=== PATIENT | male | born 1955 | race Caucasian/White ===

== ENCOUNTER 2020-05-10 23:44 | Inpatient (IN) | payer MEDICARE, OTHER, SELFPAY ==
[2020-05-10 23:49] VITALS: BP 163/117; PULSE 123; RESP 20; TEMP 37.2; O2SAT 97; BMI 25.4
[2020-05-11] VITALS (16 sets, daily range): BP systolic 125–167; BP diastolic 56–109; PULSE 72–110; RESP 12–23; TEMP 36.6–36.9; O2SAT 95–100; BMI 25.3; BMI 25.4
--- NOTE | 2020-05-11 00:06 | ED.DCSUM_ITS ---
- ER Visit Summary Date of Service: 05/11/20 Chief Complaint: Alcohol withdrawal History of Present Illness: The patient is a 64 M who presents with alcohol withdrawal requesting detox tonight. Patient states he is having tremors that are generalized. Patient states he is unsteady on his feet and has been falling frequently. Patient states his legs give out from under him. Patient states this has been getting worse over the past couple days. Patient drinks 16 ounce beers all day every day. Patient is unable to quantify but family states it is probably at least 10 beers per day. Patient states his last drink was 3 days ago. Physical Examination: Vital signs are stable except for an elevated blood pressure of 163/117 and a tachycardia of 123. Patient is afebrile. Patient is in no acute distress. Oral mucosa is pink and moist. Neck is supple. Trachea is midline. There is no JVD. Heart was regular and tachycardic. Lungs are clear and equal bilaterally. Abdomen is soft. Bowel sounds are normal. There is no tenderness. There is no rebound or guarding noted. Cranial nerves II through XII are intact. There are tremors noted in the upper and lower extremities bilaterally. Strength is 5/5 bilateral in the upper and lower extremities. There are no sensory deficits. Test Results: CBC is within normal limits. Comprehensive metabolic profile showed a mild hypokalemia of 3.1. Total bilirubin was 1.3. AST was 71 and ALT was 95. Urinalysis does not show any evidence of urinary tract infection. Emergency Department Course and Treatment: Patient was given IV fluids. Patient was given phenobarbital, Librium, and thiamine. Patient was also given a dose of oral potassium here. Patient is feeling better on reevaluation. Case was discussed with the hospitalist. He will admit the patient to the hospital. Patient understood and was agreeable with the plan. All questions were answered. Disposition: Admit to hospital Impression: 1. Alcohol withdrawal This note was generated with [employer] dictation software. It may contain incorrect words, spelling, and punctuation that were not noted in review of the chart prior to signing ED Disposition - Plan for ED Patient: Disposition: Acute Care [facility] Diagnosis: Alcohol withdrawal Referrals: Care Physician,No Primary [Primary Care Provider] -
[2020-05-11 00:13] LABS: Absolute Lymphocyte Count 0.61 X10^3/uL (0.83-4.51); Absolute Neutrophil Count 5.9 X10^3/uL (2.0-7.7); Basophil# 0.02 X10^3/uL; Basophil% 0.3 % (0-1); Hematocrit 45.3 % (40-54); Hemoglobin 15.5 g/dL (13.0-16.5); Lymphocyte # 0.61 X10^3/ul (4.0); Lymphocyte % 8.2 % (19-41); Mean Corp Hgb Conc 34.2 g/dL (32-36); Mean Corpuscular Hgb 32.4 pg (27.0-32.0); Mean Corpuscular Volume 94.6 fL (80-94); Mean Platelet Vol. 10.5 fl (6.2-12.0); Monocyte% 12.1 % (0-10); NRBC Flagged by Analyzer 0 % (0-5); Neutrophil # 5.85 X10^3/uL (2.7-7.7); Neutrophil % 78.7 % (47-70); Platelet Count 153 K/mm3 (150-450); RBC Distribution Width CV 15.4 % (11.6-14.6); RBC Distribution Width SD 53.9 fl (35.1-43.9); Red Blood Count 4.79 M/mm3 (4.6-6.2); White Blood Count 7.4 K/mm3 (4.4-11.0)
[2020-05-11 00:21] LABS: International Normalized Ratio 1.1; Prothrombin Time (Protime)PT. 13.4 SECONDS (11.7-14.9)
[2020-05-11 00:22] LABS: Alcohol, Blood (Medical)-Serum < 3.0 mg/dL; Partial Thromboplast Time 24.6 Seconds (24.1-36.2)
[2020-05-11 00:27] LABS: ALB/GLOB Ratio 1.2 RATIO (0.9-2.4); AST(SGOT) 71 U/L (15-37); Alanine Aminotransfer ALT/SGPT 95 U/L (16-61); Albumin, Serum 4.5 g/dL (3.2-5.0); Alkaline Phosphatase 93 U/L (45-117); Anion Gap 10 (5-15); BUN 10 mg/dL (7-18); BUN/Creat Ratio 8.3 RATIO (10-20); Calcium,Total 10.1 mg/dL (8.5-10.1); Chloride 105 mmol/L (98-107); EST Glomerular Filtration Rate 64 mL/min (>60); Est Glom Filt Rate - Afr Amer 78 mL/min (>60); Estimated Creatinine Clearance 54.64 ml/min; Globulin 3.9 g/dL (2.2-4.2); Glucose 202 mg/dL (74-106); Lipase 221 U/L (73-393); Potassium 3.1 mmol/L (3.5-5.1); Protein, Total 8.4 g/dL (6.4-8.2); Sodium Level 139 mmol/L (136-145)
[2020-05-11] MEDS: chlordiazePOXIDE 25 MG Capsule PO (00:30)
[2020-05-11] MEDS: Phenobarbital 32.4 MG Tablet PO ×6 (00:30→21:46)
[2020-05-11] MEDS: 0.9% Normal Saline 1,000 ML 1000 ML IV (00:30)
[2020-05-11 01:55] LABS: Bacteria 0 SEEN /hpf (None Seen); Mucous, Urine 0 SEEN /hpf (<or=2+); Squamous Epithelial Cells - UA 0 SEEN /hpf (0-5)
[2020-05-11 01:57] LABS: Color, Urine Yellow (Yellow); Glucose, Dipstick 50 mg/dl (Normal); Ketone-Dipstick 5 mg/dl (Negative); Leukocyte Esterase-Dipstick Negative /ul (Negative); Nitrite-Dipstick Negative (Negative); Occult Blood-Urine 25 /ul (Negative); Protein-Dipstick 100 mg/dl (Negative); Urine Bilirubin Dipstick Negative (Negative); Urine Clarity Clear (Clear); Urine Urobilinogen Normal (Normal)
[2020-05-11 02:04] LABS: Red Blood Cells-Urine 0-5 SEEN /hpf (0-5); White Blood Cells 0 SEEN /hpf (0-5)
[2020-05-11 02:17] LABS: Amphetamine Urine VISTA NEGATIVE (<1000 ng/mL); Barbiturate Urine VISTA NEGATIVE (< 200 ng/mL); Benzodiazepine Urine VISTA NEGATIVE (< 200 ng/mL); Cocaine Urine VISTA NEGATIVE (< 300 ng/mL); Ecstacy Urine VISTA NEGATIVE (< 500 ng/mL); Methadone Urine VISTA NEGATIVE (< 300 ng/mL); PCP Urine VISTA NEGATIVE (< 25 ng/mL); THC Urine VISTA NEGATIVE (< 50 ng/mL); Vista UDS pH Range 7
--- NOTE | 2020-05-11 03:09 | PCM.HP.STD ---
Problem List (1) Alcohol withdrawal Status: Acute History of Present Illness Date of Admission: 05/11/20 Chief Complaint: Tremors The patient is a 64 year old M with a significant history of alcohol withdrawal who presented to emergency department with generalized body tremors that started on the same day of presentation. Patient reported that he has drunk all his life. He drinks at least 10 bottles of 16 ounces of beer per day. He reported that he is unable to walk and has a steady gait. He walks by holding onto things. He reports that he had to crawl to and from the bathroom. He denies any nausea or vomiting. Last time he drank was 3 days ago. At emergency department because of severe tremors patient was given Librium and phenobarbital; as well as thiamine. Also he had hypokalemia and he received supplements of potassium. He was also given normal saline 1000 mL bolus. Past Medical History Medical History: Medical History (Last Updated 05/11/20 @ 06:[address] Devante Spain MD) Alcoholism F10.20 Allergies No Known Allergies Allergy (Verified 05/10/20 23:53) Home Medications: Ambulatory Orders Medication Instructions Recorded Multivitamin with Minerals tab PO DAILY 05/11/20 [Multiple Vitamin] Surgical History: herniorrhaphy - X2 Smoking Status: Never smoker Alcohol: Heavy - *Family History Maternal History Items: Dementia - Alzheimer type Paternal History Items: Heart Disease Review of Systems Constitutional: Denies: Chills, Fever, Weight Change HEENT: Denies: Head Aches, Sinus Congestion, Sinus Drainage Cardiovascular: Denies: Chest Pain, Palpitations Respiratory: Denies: Cough, Shortness of breath at rest, Sputum production Gastrointestinal: Denies: Abdominal Pain, Nausea, Vomiting Genitourinary: Denies: Dysuria Musculoskeletal: Denies: Joint Pain, Joint Tenderness Skin: Denies: Rash, Wounds Neurological: Reports: Incoordination. Denies: Focal weakness, Numbness, Tingling Psychiatric: Reports: Depression. Denies: Homicidal Ideations, Suicidal Ideations Hematologic/ Lymphatic: Denies: Easy Bruising, Easy Bleeding VTE Information - Inpt Only VTE Present on Admission: No VTE Mechan Device Prophylaxis: None VTE Pharm Prophylaxis ordered?: Yes Patient Problems: Active and Suspected Problems (Last Updated 05/11/20 @ 06:[address] Devante Spain MD) Alcohol withdrawal (Acute) - Physical Exam Vitals/I&O's: Vital Signs Temp Pulse Resp BP Pulse Ox 98.9 F 84 23 H 159/56 H 95 05/10/20 23:49 05/11/20 03:05 05/11/20 03:05 05/11/20 03:05 05/11/20 03:05 Oxygen Delivery Method Room Air Weight: 71.7 kg Body Mass Index (BMI) 25.4 Intake and Output for Last 24 Hours 05/09/20 05/10/20 05/11/20 23:59 23:59 23:59 Intake Total 1051 / 1051 Balance 1051 / 1051 General: Alert, Oriented x3, Cooperative HEENT: Atraumatic, PERRLA, EOMI, Normocephalic Neck: Supple, No JVD, Negative Carotid Bruits Lungs: Clear to auscultation, Normal air movement Cardiovascular: Regular rate, Regular Rhythm, Normal S1, Normal S2, No murmurs Abdomen: Bowel Sounds Present, Soft, Non Tender Extremities: No edema, Capillary Refill Less than 3 Seconds Skin: No rashes, No breakdown Musculoskeletal: No Tenderness to Palpation of Joints or Extremities Neurological: Cranial nerves II-XII grossly intact, - - Generalized body tremors Psych/Mental Status: Anxious Laboratory Results 05/10/20 23:50: WBC 7.4, RBC 4.79, Hgb 15.5, Hct 45.3, MCV 94.6 H, MCH 32.4 H, MCHC 34.2, RDW Std Deviation 53.9 H, RDW Coeff of Verenice 15.4 H, Plt Count 153, MPV 10.5, Immature Gran % (Auto) 0.700, Neut % (Auto) 78.7 H, Lymph % (Auto) 8.2 L, [place] % (Auto) 12.1 H, Eos % (Auto) 0.0, Baso % (Auto) 0.3, Absolute Neuts (auto) 5.9, Absolute Lymphs (auto) 0.61 L, Nucleated RBC % 0 05/10/20 23:50: PT 13.4, INR 1.1, APTT 24.6 05/10/20 23:50: Sodium 139, Potassium 3.1 L, Chloride 105, Carbon Dioxide 24.0, Anion Gap 10, BUN 10, Creatinine 1.20, Estim Creat Clear Calc 54.64, Est GFR (MDRD) Af Amer 78, Est GFR (MDRD) Non-Af 64, BUN/Creatinine Ratio 8.3 L, Glucose 202 H, Calcium 10.1, Total Bilirubin 1.30 H, AST 71 H, ALT 95 H, Alkaline Phosphatase 93, Total Protein 8.4 H, Albumin 4.5, Globulin 3.9, Albumin/Globulin Ratio 1.2, Lipase 221 05/10/20 23:50: Ethyl Alcohol < 3.0 05/11/20 01:46: Urine Color Yellow, Urine Clarity Clear, Urine pH 7.0, Ur Specific [place] 1.010, Urine Protein 100 H, Urine Glucose (UA) 50 H, Urine Ketones 5 H, Urine Occult Blood 25 H, Urine Nitrite Negative, Urine Bilirubin Negative, Urine Urobilinogen Normal, Ur Leukocyte Esterase Negative, Urine RBC 0-5 SEEN, Urine WBC 0 SEEN, Ur Squamous Epith Cells 0 SEEN, Urine Bacteria 0 SEEN, Urine Mucus 0 SEEN 05/11/20 01:46: Urine Opiates Screen NEGATIVE, Urine Methadone Screen NEGATIVE, Ur Barbiturates Screen NEGATIVE, Ur Phencyclidine Scrn NEGATIVE, Ur Amphetamines Screen NEGATIVE, U Methamphetamin-MDMA NEGATIVE, U Benzodiazepines Scrn NEGATIVE, Urine Cocaine Screen NEGATIVE, U Cannabinoids Screen NEGATIVE, Ur Drug Screen Comment Assessment/Plan All Active Problems (Last Updated 05/11/20 @ 06:[address] Devante Spain MD) Alcohol withdrawal (Acute) The patient is a 64 year old M with a significant history of alcohol withdrawal who presented to emergency department with generalized body tremors in the setting of alcohol withdrawal. Alcohol dependence and withdrawal Received Librium and phenobarbital at emergency department. Will be continued on phenobarbital taper and other adjunctive medications. With his excessive drinking habits and extent of tremors patient is at risk of delirium tremors. CIWA protocol with Ativan ordered. Will start patient on low-dose beta-gabe p.o. twice daily. Counselled Case management consult. Hypokalemia Potassium presentation was 3.1. Received 40 mEq of potassium at emergency department Will start patient on normal saline with 40 of potassium going at 75 mL's per hour for 1 L. Check magnesium Elevated blood pressure without diagnosed hypertension Likely secondary to alcohol withdrawal. Treat alcohol withdrawal as above. Trend blood pressures. DVT prophylaxis Subcutaneous Lovenox. Inpatient E&M: 72588 Init Hosp L3
[2020-05-11] MEDS: Potassium Chloride 40 MEQ in 0.9% Normal Saline 1,000 ML 100 MEQ IV (04:31)
[2020-05-11] MEDS: Gabapentin 300 MG Capsule PO (04:33)
[2020-05-11] MEDS: hydrOXYzine PAM 25 MG Capsule 50 MG PO (04:33)
[2020-05-11] MEDS: Metoprolol Tartrate 25 MG Tablet 12.5 MG PO ×2 (04:33→21:47)
[2020-05-11 04:53] LABS: Anion Gap 15 (5-15); BUN 11 mg/dL (7-18); BUN/Creat Ratio 9.5 RATIO (10-20); Calcium,Total 9.9 mg/dL (8.5-10.1); Chloride 104 mmol/L (98-107); Creatinine, Serum 1.16 mg/dL (0.70-1.30); EST Glomerular Filtration Rate 67 mL/min (>60); Est Glom Filt Rate - Afr Amer 81 mL/min (>60); Estimated Creatinine Clearance 56.53 ml/min; Glucose 198 mg/dL (74-106); Magnesium 1.6 mg/dL (1.6-2.6); Potassium 3.1 mmol/L (3.5-5.1); Sodium Level 140 mmol/L (136-145)
--- NOTE | 2020-05-11 07:45 | PCM.PN.BLA ---
Progress Note Patient is a 64-year-old gentleman with history of chronic alcohol use admitted with acute alcohol withdrawal admitted to regular nursing floor started on phenobarb taper. Patient also had electrolyte abnormalities including hypokalemia which is being replaced per protocol Patient seen and examined, initial assessment including history and physical diagnostic work-up and management orders reviewed will follow. Advance planning; did discuss with the patient regarding advanced directives as well as CODE STATUS. Did explain the various scenarios involved ( FULL CODE, DNR CCA, DNR CCA with no intubation, and DNR CC and what each meant) patient elected to be a full code with CPR and intubation if warranted. Order was placed. Time spent on discussion 18 minutes. STROKE Vital Signs/Narrative: Vital Signs Temp Pulse Resp BP Pulse Ox 05/11/20 04:39 98.4 F 80 18 167/89 H 98 05/11/20 04:33 80 167/89 H Multi Select Codes - Hospitalists' Procedures Procedures: 79864 Advncd Care Plan 30 Min
[2020-05-11] MEDS: Folic Acid 1 MG Tablet PO (09:06)
[2020-05-11] MEDS: Multivitamins,Therapeutic Tablet 1 TABLET PO (09:06)
[2020-05-11] MEDS: Thiamine Hydrochloride 100 MG Tablet PO (09:06)
[2020-05-11] MEDS: Enoxaparin 40 MG/0.4 ML Syringe SC (09:29)
[2020-05-11] MEDS: LORazepam 1 MG Tablet 2 MG PO (10:13)
--- NOTE | 2020-05-11 11:06 | CASEMGMT ---
Social Work Note Pt is RAMP pt. SW updated Ceci with [employer]. Sandra Rooney STROKE PROGRAM COORDINATOR, CARE INFORMATION ASSOCIATE
[2020-05-11] MEDS: LORazepam 2 MG/ML Syringe IV (12:04)
[2020-05-11] MEDS: Magnesium Oxide 400 MG Tablet PO (17:06)
[2020-05-11] MEDS: 0.9% Saline Lock 10 ML Syringe IV (21:53)
[2020-05-12] VITALS (10 sets, daily range): BP systolic 123–154; BP diastolic 72–96; PULSE 65–95; RESP 18; TEMP 36.4–37.4; O2SAT 98–100
[2020-05-12] MEDS: Phenobarbital 32.4 MG Tablet PO ×6 (00:55→21:48)
[2020-05-12 06:13] LABS: Anion Gap 6 (5-15); BUN 10 mg/dL (7-18); BUN/Creat Ratio 11.2 RATIO (10-20); Calcium,Total 8.6 mg/dL (8.5-10.1); Chloride 106 mmol/L (98-107); EST Glomerular Filtration Rate 90 mL/min (>60); Est Glom Filt Rate - Afr Amer 109 mL/min (>60); Estimated Creatinine Clearance 72.86 ml/min; Glucose 85 mg/dL (74-106); Potassium 3.7 mmol/L (3.5-5.1); Sodium Level 140 mmol/L (136-145)
[2020-05-12 06:49] LABS: Scan Indicated on CBC? Y/N YES- FLAGS NOTED
[2020-05-12 06:50] LABS: POSITIVE DIFFERENTIAL YES
--- NOTE | 2020-05-12 07:42 | PCM.PN.HOSP ---
Patient Problems: Active and Suspected Problems (Last Updated 05/11/20 @ 06:[address] Devante Spain MD) Alcohol withdrawal (Acute) Reason for Visit: Alcohol withdrawal Subjective: Patient is a 64-year-old gentleman with history of chronic alcohol use admitted with acute alcohol withdrawal admitted to regular nursing floor started on phenobarb taper. Patient also had electrolyte abnormalities including hypokalemia which is being replaced per protocol Objective: GENERAL: cooperative HEENT: Atraumatic; EYES; Anicteric, Normal Conjunctiva NECK; supple, normal thyroid, RESPIRATORY: Diminished to auscultation CARDIOVASCULAR: Regular S1 S2, GI: soft, normoactive bowel sounds, : No Renal angle tenderness; EXTREMITIES: No edema, no clubbing, MUSCULOSKELETAL: no muscle waisting NEURO: Awake; no lateralizing signs. SKIN: No Rash PSYCH; Flat affect Vitals/I&O's: Vital Signs Temp Pulse Resp BP Pulse Ox 97.5 F L 71 18 151/95 H 98 05/12/20 05:50 05/12/20 05:50 05/12/20 05:50 05/12/20 05:50 05/12/20 05:50 Oxygen Delivery Method Room Air Weight: 71.3 kg Body Mass Index (BMI) 25.3 Intake and Output for Last 24 Hours 05/10/20 05/11/20 05/12/20 23:59 23:59 23:59 Intake Total 4001 / 4201 500 / 500 Balance 4001 / 4201 500 / 500 Laboratory Results 05/12/20 05:30: Sodium 140, Potassium 3.7, Chloride 106, Carbon Dioxide 28.0, Anion Gap 6, BUN 10, Creatinine 0.90, Estim Creat Clear Calc 72.86, Est GFR (MDRD) Af Amer 109, Est GFR (MDRD) Non-Af 90, BUN/Creatinine Ratio 11.2, Glucose 85, Calcium 8.6, Magnesium 2.0 05/12/20 05:30: WBC Pending, RBC Pending, Hgb Pending, Hct Pending, MCV Pending, MCH Pending, MCHC Pending, RDW Std Deviation Pending, RDW Coeff of Verenice Pending, Plt Count Pending Current Medications Dicyclomine HCl (Bentyl) 20 mg PO Q6H PRN PRN PRN Reason: abdominal discomfort Enoxaparin Sodium (Lovenox) 40 mg SC DAILY [facility] Last Admin: 05/11/20 09:29 Dose: 40 mg Documented by: Folic Acid (Folic Acid) 1 mg PO DAILY@0800 [facility] Last Admin: 05/11/20 09:06 Dose: 1 mg Documented by: Gabapentin (Neurontin) 300 mg PO Q8H PRN PRN PRN Reason: moderate to severe anxiety Last Admin: 05/11/20 04:33 Dose: 300 mg Documented by: Hydroxyzine Pamoate (Vistaril Pamoate Capsule) 50 mg PO Q4H PRN PRN PRN Reason: mild anxiety Last Admin: 05/11/20 04:33 Dose: 50 mg Documented by: Loperamide HCl (Imodium) 2 mg PO Q4H PRN PRN PRN Reason: LOOSE STOOLS Lorazepam (Ativan) 2 mg PO Q2H PRN PRN; Protocol PRN Reason: CIWA score > 8 but <15 Last Admin: 05/11/20 10:13 Dose: 2 mg Documented by: Lorazepam (Ativan) 2 mg PO UD PRN; Protocol PRN Reason: CIWA score >/=15. Lorazepam (Ativan) 2 mg IV Q2H PRN PRN; Protocol PRN Reason: CIWA score > 8 but <15 Lorazepam (Ativan) 2 mg IV UD PRN; Protocol PRN Reason: CIWA score >/=15. Last Admin: 05/11/20 12:04 Dose: 2 mg Documented by: [facility] 400[facility] Last Admin: 05/11/20 17:06 Dose: 400 mg Documented by: Metoprolol Tartrate (Lopressor (Beta Joana)) 12.5 mg PO BID [facility] Last Admin: 05/11/20 21:47 Dose: 12.5 mg Documented by: [facility]it[facility] ([facility]itamin) [facility] Last Admin: 05/11/20 09:06 Dose: 1 tablet Documented by: Ondansetron HCl (Zofran) 8 mg PO Q8H PRN PRN PRN Reason: NAUSEA Ondansetron HCl (Zofran) 4 mg IV Q8H PRN PRN PRN Reason: NAUSEA/VOMITING Phenobarbital (Phenobarbital) 97.2 mg PO Q4H [facility]; Taper Stop: 05/15/20 12:59 Last Admin: 05/12/20 05:48 Dose: 97.2 mg Documented by: Potassium Chloride (K-Dur) 20 meq PO BIDCM [facility] Last Admin: 05/11/20 17:06 Dose: 20 meq Documented by: Sodium Chloride () 10 - 40 ml IV UD PRN PRN Reason: SALINE FLUSH Last Admin: 05/11/20 21:53 Dose: 10 ml Documented by: Thiamine HCl (Vitamin B1) 100 mg PO DAILYCM [facility] Last Admin: 05/11/20 09:06 Dose: 100 mg Documented by: Trazodone HCl (Desyrel) 100 mg PO QHS PRN PRN Reason: INSOMNIA STROKE Vital Signs/Narrative: Vital Signs Temp Pulse Resp BP Pulse Ox 05/12/20 05:50 97.5 F L 71 18 151/95 H 98 Medical Necessity - Tobacco Use Smoking Status: Never smoker Assessment/Plan All Active Problems (Last Updated 05/11/20 @ 06:[address] Devante Spain MD) Alcohol withdrawal (Acute) Patient is a 64-year-old gentleman with history of chronic alcohol use admitted with acute alcohol withdrawal admitted to regular nursing floor started on phenobarb taper. Patient also had electrolyte abnormalities including hypokalemia which is being replaced per protocol 1. Acute alcohol withdrawal ?Admitted to regular nursing floor being managed with phenobarb taper 2. Hypokalemia ?Corrected per protocol 3. Elevated blood pressure ?Present on admission has since improved 4. DVT prophylaxis ?[facility] Inpatient E&M: 03213 Subs Hosp L2
[2020-05-12 08:27] LABS: Hemoglobin 13.9 g/dL (13.0-16.5); Mean Corp Hgb Conc 33.1 g/dL (32-36); Mean Corpuscular Hgb 32.3 pg (27.0-32.0); Mean Corpuscular Volume 97.4 fL (80-94); Mean Platelet Vol. 10.4 fl (6.2-12.0); Platelet Count 114 K/mm3 (150-450); RBC Distribution Width SD 54.3 fl (35.1-43.9); Red Blood Count 4.31 M/mm3 (4.6-6.2); White Blood Count 6.1 K/mm3 (4.4-11.0)
[2020-05-12] MEDS: Multivitamins,Therapeutic Tablet 1 TABLET PO (09:05)
[2020-05-12] MEDS: Folic Acid 1 MG Tablet PO (09:05)
[2020-05-12] MEDS: Magnesium Oxide 400 MG Tablet PO ×2 (09:05→17:05)
[2020-05-12] MEDS: Thiamine Hydrochloride 100 MG Tablet PO (09:06)
[2020-05-12] MEDS: Enoxaparin 40 MG/0.4 ML Syringe SC (09:53)
[2020-05-12] MEDS: Metoprolol Tartrate 25 MG Tablet 12.5 MG PO ×2 (09:54→21:49)
[2020-05-12] MEDS: 0.9% Saline Lock 10 ML Syringe IV (14:09)
--- NOTE | 2020-05-12 15:47 | ADDICTION ---
THis field underwriter met with patient in his room to complete ASAM, MSE, AUDIT assessments and begin processing discharge planning. Client reports that he is motivated for ongoing treatment and is willing to engage in Residential treatment. Patient has medicare insurance, which often does not cover Residential treatment and reports that he is currently not allowed to walk because I cannot. This field underwriter will discuss discharge planning with his nurse, Eleonora, and will meet with patient tomorrow to continue with planning. He appears appropriate for the 4.0 LOC at this time based on the following: Dimension1: severe Dimension2: severe
--- NOTE | 2020-05-12 18:13 | NURSING ---
pt ambulated in halls without walker, due to pt statement of i don't use a walker at home. pt unsteady at times and has decreased strength from laying in bed and due to the tremors, x1 assist recommended. pt tolerated walking well and denied any pain after ambulation. pt in good spirits regarding withdrawal and rehab upon discharge
[2020-05-13] VITALS (9 sets, daily range): BP systolic 117–148; BP diastolic 72–85; PULSE 65–86; RESP 18; TEMP 36.6–36.9; O2SAT 95–100
[2020-05-13] MEDS: Phenobarbital 32.4 MG Tablet PO ×5 (02:07→18:58)
[2020-05-13 07:44] LABS: Hematocrit 41.7 % (40-54); Hemoglobin 14.3 g/dL (13.0-16.5); Mean Corp Hgb Conc 34.3 g/dL (32-36); Mean Corpuscular Hgb 32.9 pg (27.0-32.0); Mean Corpuscular Volume 95.9 fL (80-94); Mean Platelet Vol. 10.1 fl (6.2-12.0); Platelet Count 139 K/mm3 (150-450); RBC Distribution Width CV 14.6 % (11.6-14.6); RBC Distribution Width SD 51.5 fl (35.1-43.9); Red Blood Count 4.35 M/mm3 (4.6-6.2); White Blood Count 5.9 K/mm3 (4.4-11.0)
[2020-05-13] MEDS: Magnesium Oxide 400 MG Tablet PO ×2 (08:53→17:25)
[2020-05-13] MEDS: Multivitamins,Therapeutic Tablet 1 TABLET PO (08:53)
[2020-05-13] MEDS: Thiamine Hydrochloride 100 MG Tablet PO (08:54)
[2020-05-13] MEDS: Folic Acid 1 MG Tablet PO (08:54)
[2020-05-13] MEDS: Enoxaparin 40 MG/0.4 ML Syringe SC (08:57)
[2020-05-13] MEDS: Metoprolol Tartrate 25 MG Tablet 12.5 MG PO ×2 (08:57→21:08)
--- NOTE | 2020-05-13 10:49 | PCM.PN.HOSP ---
Patient Problems: Active and Suspected Problems (Last Updated 05/11/20 @ 06:[address] Devante Spain MD) Alcohol withdrawal (Acute) Subjective: Feeling okay. No sx of withdrawal. No agitation or anxiety. Moving bowels normally. Vitals/I&O's: Vital Signs Temp Pulse Resp BP Pulse Ox 97.8 F 73 18 123/83 H 98 05/13/20 09:23 05/13/20 09:23 05/13/20 09:23 05/13/20 09:23 05/13/20 09:23 Oxygen Delivery Method Room Air Weight: 71.3 kg Body Mass Index (BMI) 25.3 Intake and Output for Last 24 Hours 05/11/20 05/12/20 05/13/20 23:59 23:59 23:59 Intake Total 4001 / 4201 2074 / 2314 340 / 340 Balance 4001 / 4201 2074 / 2314 340 / 340 General: Alert, Oriented x3, Cooperative, No apparent distress, Well developed, Well nourished Oral: Moist Mucosa, No Gingival or Mucosal Lesions/ Ulcerations, - - edentulous Lungs: Clear to auscultation, Normal air movement, No rhonchi, No wheeze, No rales Cardiovascular: Regular rate, Regular Rhythm, Normal S1, Normal S2, No murmurs, No Ectopic Activity, No rub noted, No Gallop Abdomen: Bowel Sounds Present, Soft, Non Tender, Non-Distended Extremities: No clubbing, No cyanosis, No edema, Capillary Refill Less than 3 Seconds Psych/Mental Status: Normal Affect, Appropriate, Alert and oriented to time, place, person, mood and affect Laboratory Results 05/13/20 07:34: WBC 5.9, RBC 4.35 L, Hgb 14.3, Hct 41.7, MCV 95.9 H, MCH 32.9 H, MCHC 34.3, RDW Std Deviation 51.5 H, RDW Coeff of Verenice 14.6, Plt Count 139 L, MPV 10.1 Current Medications Dicyclomine HCl (Bentyl) 20 mg PO Q6H PRN PRN PRN Reason: abdominal discomfort Enoxaparin Sodium (Lovenox) 40 mg SC DAILY [place] Last Admin: 05/13/20 08:57 Dose: 40 mg Documented by: Folic Acid (Folic Acid) 1 mg PO DAILY@0800 [facility] Last Admin: 05/13/20 08:54 Dose: 1 mg Documented by: Gabapentin (Neurontin) 300 mg PO Q8H PRN PRN PRN Reason: moderate to severe anxiety Last Admin: 05/11/20 04:33 Dose: 300 mg Documented by: Hydroxyzine Pamoate (Vistaril Pamoate Capsule) 50 mg PO Q4H PRN PRN PRN Reason: mild anxiety Last Admin: 05/11/20 04:33 Dose: 50 mg Documented by: Loperamide HCl (Imodium) 2 mg PO Q4H PRN PRN PRN Reason: LOOSE STOOLS Lorazepam (Ativan) 2 mg PO Q2H PRN PRN; Protocol PRN Reason: CIWA score > 8 but <15 Last Admin: 05/11/20 10:13 Dose: 2 mg Documented by: Lorazepam (Ativan) 2 mg PO UD PRN; Protocol PRN Reason: CIWA score >/=15. Lorazepam (Ativan) 2 mg IV Q2H PRN PRN; Protocol PRN Reason: CIWA score > 8 but <15 Lorazepam (Ativan) 2 mg IV UD PRN; Protocol PRN Reason: CIWA score >/=15. Last Admin: 05/11/20 12:04 Dose: 2 mg Documented by: [facility]Ox 400) [facility] Last Admin: 05/13/20 08:53 Dose: 400 mg Documented by: Metoprolol Tartrate (Lopressor (Beta Joana)) 12.5 mg PO BID [facility] Last Admin: 05/13/20 08:57 Dose: 12.5 mg Documented by: Multivitamins (Multivitamin) [facility] Last Admin: 05/13/20 08:53 Dose: 1 tablet Documented by: Nutritional Formula (Lactose Free) (Ensure Enlive) 120 ml PO 4X/DAY [facility] Last Admin: 05/13/20 09:02 Dose: 120 ml Documented by: Ondansetron HCl (Zofran) 8 mg PO Q8H PRN PRN PRN Reason: NAUSEA Ondansetron HCl (Zofran) 4 mg IV Q8H PRN PRN PRN Reason: NAUSEA/VOMITING Phenobarbital (Phenobarbital) 64.8 mg PO Q4H [facility]; Taper Stop: 05/15/20 12:59 Last Admin: 05/13/20 08:57 Dose: 64.8 mg Documented by: Potassium Chloride (K-Dur) 20 meq PO BIDCM [facility] Last Admin: 05/13/20 08:54 Dose: 20 meq Documented by: Sodium Chloride () 10 - 40 ml IV UD PRN PRN Reason: SALINE FLUSH Last Admin: 05/12/20 14:09 Dose: 10 ml Documented by: Thiamine HCl (Vitamin B1) 100 mg PO DAILYCM [facility] Last Admin: 05/13/20 08:54 Dose: 100 mg Documented by: Trazodone HCl (Desyrel) 100 mg PO QHS PRN PRN Reason: INSOMNIA STROKE Vital Signs/Narrative: Vital Signs Temp Pulse Resp BP Pulse Ox 05/13/20 09:23 97.8 F 73 18 123/83 H 98 05/13/20 09:00 97.8 F 73 18 123/83 H 98 05/13/20 08:57 86 05/13/20 07:08 95 Medical Necessity - Tobacco Use Smoking Status: Never smoker Assessment/Plan All Active Problems (Last Updated 05/11/20 @ 06:[address] Devante Spain MD) Alcohol withdrawal (Acute) Acute EtOH withdrawal -on phenobarb taper with Detox order set -thiamine and folate -plan is for residential treatment after d/c and 180 is working on setting all of this up Hypokalemia -resolved Thrombocytopenia -improving -suspect 2/2 marrow tox from EtOH Elevated BP -resolved -on metoprolol 12.5 mg BID -monitor DVT prophylaxis -Lovenox daily Code status -Full Inpatient E&M: 88897 Subs Hosp L2
--- NOTE | 2020-05-13 12:27 | ADDICTION ---
This group underwriter contacted the [facility] to request assistance in [facility] patient in an appropriate setting upon discharge from [facility]. This group underwriter is waiting to hear back from the 's Administration office. [facility] staff will continue to follow up with patient.
[2020-05-14] VITALS (10 sets, daily range): BP systolic 114–155; BP diastolic 64–97; PULSE 60–88; RESP 16–18; TEMP 36.6–37.1; O2SAT 97–100
[2020-05-14] MEDS: Phenobarbital 32.4 MG Tablet PO ×4 (01:09→18:34)
[2020-05-14 06:32] LABS: Hematocrit 41.1 % (40-54); Mean Corp Hgb Conc 34.1 g/dL (32-36); Mean Corpuscular Hgb 32.5 pg (27.0-32.0); Mean Corpuscular Volume 95.4 fL (80-94); Platelet Count 166 K/mm3 (150-450); RBC Distribution Width CV 14.5 % (11.6-14.6); RBC Distribution Width SD 51.2 fl (35.1-43.9); Red Blood Count 4.31 M/mm3 (4.6-6.2); White Blood Count 5.7 K/mm3 (4.4-11.0)
[2020-05-14] MEDS: Multivitamins,Therapeutic Tablet 1 TABLET PO (07:57)
[2020-05-14] MEDS: Folic Acid 1 MG Tablet PO (07:58)
[2020-05-14] MEDS: Magnesium Oxide 400 MG Tablet PO ×2 (07:58→17:00)
[2020-05-14] MEDS: Thiamine Hydrochloride 100 MG Tablet PO (07:58)
--- NOTE | 2020-05-14 08:40 | PN_ITS ---
Patient Problems: Active and Suspected Problems (Last Updated 05/11/20 @ 06:[address] Devante Spain MD) Alcohol withdrawal (Acute) Subjective: Feeling well. No internal or external anxiety. Wants to do a residential program preferably but thinks that the 3x/week 3 hrs/day program would be the 2nd best option for him Vitals/I&O's: Vital Signs Temp Pulse Resp BP Pulse Ox 98.0 F 88 18 118/68 98 05/14/20 08:12 05/14/20 08:12 05/14/20 08:12 05/14/20 08:12 05/14/20 08:13 Oxygen Delivery Method Room Air Weight: 71.3 kg Body Mass Index (BMI) 25.3 Intake and Output for Last 24 Hours 05/12/20 05/13/20 05/14/20 23:59 23:59 23:59 Intake Total 2073 / 2313 940 / 940 Balance 2073 940 / 940 General: Alert, Oriented x3, Cooperative, No apparent distress, Well developed, Well nourished Lungs: Clear to auscultation, Normal air movement, No rhonchi, No wheeze, No rales Cardiovascular: Regular rate, Regular Rhythm, Normal S1, Normal S2, No rub noted, No Gallop Abdomen: Bowel Sounds Present, Soft, Non Tender, Non-Distended, No hernias noted Extremities: No clubbing, No cyanosis, No edema, Capillary Refill Less than 3 Seconds, Peripheral Pulses Normal Skin: No rashes, No breakdown Musculoskeletal: No Tenderness to Palpation of Joints or Extremities, No Muscle Wasting Neurological: - - no tremor Psych/Mental Status: Normal Affect, Appropriate, - - calm, Alert and oriented to time, place, person, mood and affect Laboratory Results 05/14/20 05:40: WBC 5.7, RBC 4.31 L, Hgb 14.0, Hct 41.1, MCV 95.4 H, MCH 32.5 H, MCHC 34.1, RDW Std Deviation 51.2 H, RDW Coeff of Verenice 14.5, Plt Count 166, MPV 10.0 Current Medications Dicyclomine HCl (Bentyl) 20 mg PO Q6H PRN PRN PRN Reason: abdominal discomfort Enoxaparin Sodium (Lovenox) 40 mg SC DAILY [place] Last Admin: 05/13/20 08:57 Dose: 40 mg Documented by: Folic Acid (Folic Acid) 1 mg PO DAILY@0800 [facility] Last Admin: 05/14/20 07:58 Dose: 1 mg Documented by: Gabapentin (Neurontin) 300 mg PO Q8H PRN PRN PRN Reason: moderate to severe anxiety Last Admin: 05/11/20 04:33 Dose: 300 mg Documented by: Hydroxyzine Pamoate (Vistaril Pamoate Capsule) 50 mg PO Q4H PRN PRN PRN Reason: mild anxiety Last Admin: 05/11/20 04:33 Dose: 50 mg Documented by: Loperamide HCl (Imodium) 2 mg PO Q4H PRN PRN PRN Reason: LOOSE STOOLS Lorazepam (Ativan) 2 mg PO Q2H PRN PRN; Protocol PRN Reason: CIWA score > 8 but <15 Last Admin: 05/11/20 10:13 Dose: 2 mg Documented by: Lorazepam (Ativan) 2 mg PO UD PRN; Protocol PRN Reason: CIWA score >/=15. Lorazepam (Ativan) 2 mg IV Q2H PRN PRN; Protocol PRN Reason: CIWA score > 8 but <15 Lorazepam (Ativan) 2 mg IV UD PRN; Protocol PRN Reason: CIWA score >/=15. Last Admin: 05/11/20 12:04 Dose: 2 mg Documented by: Magnesium Ox[facility] (Mag-Ox 400) [facility] Last Admin: 05/14/20 07:58 Dose: 400 mg Documented by: Metoprolol Tartrate (Lopressor (Beta Joana)) 12.5 mg PO BID [facility] Last Admin: 05/13/20 21:08 Dose: 12.5 mg Documented by: Multivitamins (Multivitamin) [facility] Last Admin: 05/14/20 07:57 Dose: 1 tablet Documented by: Nutritional Formula (Lactose Free) (Ensure Enlive) 120 ml PO 4X/DAY [facility] Last Admin: 05/14/20 07:58 Dose: 120 ml Documented by: Ondansetron HCl (Zofran) 8 mg PO Q8H PRN PRN PRN Reason: NAUSEA Ondansetron HCl (Zofran) 4 mg IV Q8H PRN PRN PRN Reason: NAUSEA/VOMITING Phenobarbital (Phenobarbital) 64.8 mg PO Q6H [facility]; Taper Stop: 05/15/20 12:59 Last Admin: 05/14/20 06:41 Dose: 64.8 mg Documented by: Potassium Chloride (K-Dur) 20 meq PO BIDCM [facility] Last Admin: 05/14/20 07:57 Dose: 20 meq Documented by: Sodium Chloride () 10 - 40 ml IV UD PRN PRN Reason: SALINE FLUSH Last Admin: 05/12/20 14:09 Dose: 10 ml Documented by: Thiamine HCl (Vitamin B1) 100 mg PO DAILYCM [facility] Last Admin: 05/14/20 07:58 Dose: 100 mg Documented by: Trazodone HCl (Desyrel) 100 mg PO QHS PRN PRN Reason: INSOMNIA STROKE Vital Signs/Narrative: Vital Signs Temp Pulse Resp BP Pulse Ox 05/14/20 08:13 98 05/14/20 08:12 98.0 F 88 18 118/68 98 05/14/20 08:03 98.0 F 86 18 118/68 98 Medical Necessity - Tobacco Use Smoking Status: Never smoker Assessment/Plan All Active Problems (Last Updated 05/11/20 @ 06:[address] Devante Spain MD) Alcohol withdrawal (Acute) Acute EtOH withdrawal -on phenobarb taper with Detox order set -down to 64.5 q 6 hrs today -thiamine and folate -per ADM note from yesterday [facility] after [facility]c -pt is medically stable for d/c once plan is clear Hypokalemia -resolved -will repeat BMP in am Thrombocytopenia -resolved Elevated BP -BP is controlled -on metoprolol 12.5 mg BID--> will likely not d/c on this and have pt f/u as out pt -monitor DVT prophylaxis -Lovenox daily Code status -Full Dispo -pt stable and medically appropriate for d/c -ADM contacted [facility] 05[facility]13 about possible inpt rx -await definitive plan Inpatient E&M: 30890 Subs Hosp L2
--- NOTE | 2020-05-14 09:16 | CASEMGMT ---
Social Work Note SW placed a call to Donell at [facility] and left message asking for update on pt. Physician states pt is medically ready for discharge once plan has been established. JOSUE waiting for call back. Sandra Rooney WHEEL CLEANER, JIG BORE TOOL MAKER
[2020-05-14] MEDS: Enoxaparin 40 MG/0.4 ML Syringe SC (09:59)
[2020-05-14] MEDS: Metoprolol Tartrate 25 MG Tablet 12.5 MG PO ×2 (10:00→21:27)
--- NOTE | 2020-05-14 12:16 | CASEMGMT ---
Social Work Note SW received call from pt's Faith. Faith states pt is agreeable to doing residential treatment and is trying to get [facility] to [facility] [place]. Faith states she has tried to call the [facility] herself and they haven't returned her phone call. Faiht asked what the process is for getting pt to the [facility] for treatment. JOSUE explained that this worker doesn't do the discharge planning for pt's that are in the [facility] program as [facility] the [facility] for pt's in [facility]. Faith states she has already talked to [facility] and they had told her that the SW at the hospital needs to arrange it. JOSUE explained that this worker will speak with [facility] and discuss pt's discharge plans. Faith states understanding. JOSUE placed a call to [facility] and spoke with Donell. Donell states Panfilo with [facility] is working with the pt and pt's to get pt into residential treatment through the [facility]. Panfilo states she just spoke with pt's Faith regarding discharge plans. Panfilo states she did NOT tell the that this worker had to arrange the discharge to the [facility] and just told the that this worker had to be updated. Panfilo states she explained to Faith that pt may have to be brought home for a few days before pt can get into a [facility] facility. Panfilo states the original discharge plan was for pt to go to [facility] but then it was found out that [facility] doesn't take pt's insurance. Panfilo states that right now the plan is for pt to discharge tomorrow and pt is able to go to [facility] in [place]. Panfilo states pt's Faith will transport pt and she can take pt to [facility] or can take pt home. Plan: [facility] tomorrow Sandra Rooney PREPARATION SUPERVISOR, CAGE TENDER
--- NOTE | 2020-05-14 13:15 | NURSING ---
Pt's called in stating she wanted to let the nurse know that she was going through the patient's belongings and has found some pharmaceutical things stating she found tiny white pill with R57 on it and that she found multiple pills/old scripts from the patient's mother including meds for anxiety. Pt stated concern that there were pharmaceuticals involved. Informed pt's that a tox screen is done upon admission with the [facility] program and this nurse would pass on this information to primary RN.
[2020-05-15] MEDS: traZODone 100 MG Tablet PO
[2020-05-15 03:45] VITALS: BP 112/77; PULSE 66; RESP 18; TEMP 36.3; O2SAT 98
[2020-05-15] MEDS: Phenobarbital 32.4 MG Tablet PO ×2 (06:07)
[2020-05-15 07:35] LABS: Anion Gap 5 (5-15); BUN 17 mg/dL (7-18); BUN/Creat Ratio 18.3 RATIO (10-20); Chloride 102 mmol/L (98-107); Creatinine, Serum 0.93 mg/dL (0.70-1.30); EST Glomerular Filtration Rate 86 mL/min (>60); Est Glom Filt Rate - Afr Amer 104 mL/min (>60); Estimated Creatinine Clearance 70.51 ml/min; Glucose 97 mg/dL (74-106); Potassium 3.8 mmol/L (3.5-5.1); Sodium Level 135 mmol/L (136-145)
[2020-05-15 08:10] VITALS: BP 116/78; PULSE 77; RESP 18; TEMP 36.2; O2SAT 99
[2020-05-15] MEDS: Enoxaparin 40 MG/0.4 ML Syringe SC (08:12)
[2020-05-15 08:13] VITALS: PULSE 77
[2020-05-15] MEDS: Folic Acid 1 MG Tablet PO (08:13)
[2020-05-15] MEDS: Metoprolol Tartrate 25 MG Tablet 12.5 MG PO (08:13)
[2020-05-15] MEDS: Magnesium Oxide 400 MG Tablet PO (08:13)
[2020-05-15] MEDS: Multivitamins,Therapeutic Tablet 1 TABLET PO (08:13)
[2020-05-15] MEDS: Thiamine Hydrochloride 100 MG Tablet PO (08:13)
--- NOTE | 2020-05-15 09:49 | NURSING ---
This nurse got a call from patients Glenna. She was asking for pt's social Security number because the [facility] needs it. Glenna then explains to this nurse via phone that she has called the [facility] to look to get pt in for inpatient addiction. This nurse stated that staff thought the plan was for pt to f/u with [facility] Dr. Chavez and [employer] Security Developer but thought pt was going to be discharged and have take him to [email or web address]. Glenna states that in the Emergency room, her said he wanted to go inpatient. He will go right back to drinking if he doesn't go. Dr. Chavez informed this nurse that pt has no intent to go anywhere but home. Pt happened to be at the desk and was put on hold. talked via phone with pt. This nurse is not sure what they talked about but pt kept saying, I will talk to you when you pick me up. This nurse will have E[employer] Security Developer call and talk with patients .
--- NOTE | 2020-05-15 10:18 | CASEMGMT ---
Social Work JOSUE spoke with RN and physician who state pt is now telling them he will not be going to a alcohol treatment center at discharge and will be returning home with . JOSUE spoke with pt on the phone. Pt expressing frustration with pt and decision making. Pt had been talking [facility] the [facility] about admission to the residential treatment program as feels pt will not be sucessful doing it on his own or at an outpt clinic. Pt was scheduled to go to [facility] in [place]. is under the understanding that this is an outpatient clinic. JOSUE called Zahra at [facility] and informed of the above. Zahra states [facility] is actually a residential program and pt was to check into it. Zahra is going to call pt and discuss discharge plan. At this time pt wanting to return home, pt ready for d/c today. JOSE Bocanegra
--- NOTE | 2020-05-15 11:32 | DCINST_ITS ---
- Discharge Diagnoses Current Active Problems: Current Active and Chronic Problems (Last Updated 05/11/20 @ 06:[address] Devante Spain MD) Alcohol withdrawal (Acute) You will use the following diet at home:: No restrictions, Regular Your food should be the consistency of: Regular Your liquids should be the consistency of: Regular/Thin Discharge Activity: Return to Normal Activity, No Restrictions Allergies/Adverse Reactions: Allergies No Known Allergies Allergy (Verified 05/10/20 23:53) Medications to take at Discharge Multivitamin with Minerals [Multiple Vitamin] tab PO DAILY 05/11/20 Primary Care Physician: Care Physician,No Primary [Primary Care Provider] - Test Results: Test results from this visit will be discussed in further detail at your follow- up appointment, if applicable. Please Follow Up With: Addiction plan
--- NOTE | 2020-05-15 11:33 | PCM.DC.SUM ---
Discharge Date and Diagnosis - Problem List Patient Problems: Active and Suspected Problems (Last Updated 05/11/20 @ 06:[address] Devante Spain MD) Alcohol withdrawal (Acute) Date of Admission: 05/11/20 - Primary Discharge Diagnosis Acute Problems: Active Problems (Last Updated 05/11/20 @ 06:[address] Devante Spain MD) Alcohol withdrawal (Acute) Hospital Course and Treatment Imaging Results: NONE ADM Operations: None Procedures: None Summary of Care Provided: Mr. Brock is a 64 year old M with a significant history of alcohol abuse who presented to ED and [facility] on 05/11/2020 with generalized body tremors that started on the same day of presentation. He reported that he has consumed all his life and that he drinks at least 10 bottles of 16 ounces of beer per day. He reported that he had been unable to walk and has an unsteady gait. He walks by holding onto things. His last drink was 3 days prior to admission. In the ED he was given Librium, phenobarbital, and thiamine because of severe tremors. Also was also hypokalemic and he received K supplementation. He was admitted to the [facility] for stabilization and detox. He was detoxed with the Phenobarb taper and given thiamine and folate supplementation. Electrolytes were replaced as needed. the initial plan was for the pt to obtain residential treatment but on the day of d/c he decided to go home and either go to [facility] in [place] for outpt treatment or doing it on his own. We discussed the likelihood of him being successful by doing it on his own is very low and he acknowledged this. He was d/c in stable condition. Patient Problems: Active and Suspected Problems (Last Updated 05/11/20 @ 06:[address] Devante Spain MD) Alcohol withdrawal (Acute) Subjective: Pt states that he is feeling well but has other plans regarding his treatment at d/c. Upset that the case mgrs have not updated him on his 's condition. - Physical Exam Vitals/I&O's: Vital Signs Temp Pulse Resp BP Pulse Ox 97.2 F L 77 18 116/78 99 05/15/20 08:10 05/15/20 08:13 05/15/20 08:10 05/15/20 08:10 05/15/20 08:10 Oxygen Delivery Method Room Air Weight: 71.3 kg Body Mass Index (BMI) 25.3 Intake and Output for Last 24 Hours 05/13/20 05/14/20 05/15/20 23:59 23:59 23:59 Intake Total 940 / 940 1140 / 1140 Balance 940 / 940 1140 / 1140 General: Alert, Oriented x3, Cooperative, No apparent distress, Well developed, Well nourished, - - older WM sitting on EOB appears a bit anxious HEENT: Atraumatic, PERRLA, EOMI, Normocephalic, EAC Clear Oral: Moist Mucosa, No Gingival or Mucosal Lesions/ Ulcerations Neck: Supple, No JVD, No Nodes, No Nuchal Rigidity, Trachea Midline, Thyroid Normal Size and Texture Lungs: Clear to auscultation, Normal air movement, No rhonchi, No wheeze Cardiovascular: Regular rate, Regular Rhythm, Normal S1, Normal S2, No murmurs, No Ectopic Activity, No rub noted, No Gallop Abdomen: Bowel Sounds Present, Soft, Non Tender, Non-Distended, No Hepato-splenomegaly Extremities: No clubbing, No cyanosis, No edema, Capillary Refill Less than 3 Seconds, Peripheral Pulses Normal Skin: No rashes, No breakdown Musculoskeletal: No Tenderness to Palpation of Joints or Extremities, No Muscle Wasting, Arthritic Changes Lymphatic: No Cervical, Supraclavicular, or Inguinal Adenopathy Neurological: Cranial nerves II-XII grossly intact, Neuro grossly intact, Muscle tone normal, Sensory exam intact to light touch and pain, Coordination normal, Gait narrow based and stable Psych/Mental Status: Normal Affect, Appropriate, Alert and oriented to time, place, person, mood and affect Laboratory Results 05/15/20 06:48: Sodium 135 L, Potassium 3.8, Chloride 102, Carbon Dioxide 28.0, Anion Gap 5, BUN 17, Creatinine 0.93, Estim Creat Clear Calc 70.51, Est GFR (MDRD) Af Amer 104, Est GFR (MDRD) Non-Af 86, BUN/Creatinine Ratio 18.3, Glucose 97, Calcium 9.0 Current Medications Dicyclomine HCl (Bentyl) 20 mg PO Q6H PRN PRN PRN Reason: abdominal discomfort Enoxaparin Sodium (Lovenox) 40 mg SC DAILY [place] Last Admin: 05/15/20 08:12 Dose: 40 mg Documented by: Folic Acid (Folic Acid) 1 mg PO DAILY@0800 [facility] Last Admin: 05/15/20 08:13 Dose: 1 mg Documented by: Gabapentin (Neurontin) 300 mg PO Q8H PRN PRN PRN Reason: moderate to severe anxiety Last Admin: 05/11/20 04:33 Dose: 300 mg Documented by: Hydroxyzine Pamoate (Vistaril Pamoate Capsule) 50 mg PO Q4H PRN PRN PRN Reason: mild anxiety Last Admin: 05/11/20 04:33 Dose: 50 mg Documented by: Loperamide HCl (Imodium) 2 mg PO Q4H PRN PRN PRN Reason: LOOSE STOOLS Lorazepam (Ativan) 2 mg PO Q2H PRN PRN; Protocol PRN Reason: CIWA score > 8 but <15 Last Admin: 05/11/20 10:13 Dose: 2 mg Documented by: Lorazepam (Ativan) 2 mg PO UD PRN; Protocol PRN Reason: CIWA score >/=15. Lorazepam (Ativan) 2 mg IV Q2H PRN PRN; Protocol PRN Reason: CIWA score > 8 but <15 Lorazepam (Ativan) 2 mg IV UD PRN; Protocol PRN Reason: CIWA score >/=15. Last Admin: 05/11/20 12:04 Dose: 2 mg Documented by: Magnesium Oxide (Mag-Ox 400) [address] [facility] Last Admin: 05/15/20 08:13 Dose: 400 mg Documented by: Metoprolol Tartrate (Lopressor (Beta Joana)) 12.5 mg PO BID [facility] Last Admin: 05/15/20 08:13 Dose: 12.5 mg Documented by: Multivitamins (Multivitamin) [address] [facility] Last Admin: 05/15/20 08:13 Dose: 1 tablet Documented by: Nutritional Formula (Lactose Free) (Ensure Enlive) 120 ml PO 4X/DAY [facility] Last Admin: 05/15/20 08:20 Dose: 120 ml Documented by: Ondansetron HCl (Zofran) 8 mg PO Q8H PRN PRN PRN Reason: NAUSEA Ondansetron HCl (Zofran) 4 mg IV Q8H PRN PRN PRN Reason: NAUSEA/VOMITING Phenobarbital (Phenobarbital) 32.4 mg PO Q6H [facility]; Taper Stop: 05/15/20 12:59 Last Admin: 05/15/20 06:07 Dose: 32.4 mg Documented by: Potassium Chloride (K-Dur) 20 meq PO BIDCM [facility] Last Admin: 05/15/20 08:13 Dose: 20 meq Documented by: Sodium Chloride () 10 - 40 ml IV UD PRN PRN Reason: SALINE FLUSH Last Admin: 05/12/20 14:09 Dose: 10 ml Documented by: Thiamine HCl (Vitamin B1) 100 mg PO DAILYCM [facility] Last Admin: 05/15/20 08:13 Dose: 100 mg Documented by: Trazodone HCl (Desyrel) 100 mg PO QHS PRN PRN Reason: INSOMNIA Last Admin: 05/15/20 00:00 Dose: 100 mg Documented by: Discharge Activity: Return to Normal Activity, No Restrictions Home Medications: Medications to take at Discharge Multivitamin with Minerals [Multiple Vitamin] tab PO DAILY 05/11/20 Primary Care Physician: Care Physician,No Primary [Primary Care Provider] - Please Follow Up With: Addiction plan Medical Necessity - Tobacco Use Smoking Status: Never smoker Meaningful Use Info Meaningful Use Diagnoses (Choose all that apply): None applicable Inpatient E&M: 95039 [facility] Hosp
== END 2020-05-15 12:19 | disposition home or self-care (01) | DRG 897 ==
LOC: ED 05-11 02:15 → MS3 05-11 03:34
PROVIDERS: Internal Medicine; Admitting Provider Hospitalist; Emergency Provider Emergency Medicine; Visit Provider Internal Medicine
DX: F10.239 Alcohol dependence with withdrawal, unspecified (principal); Y90.9 Presence of alcohol in blood, level not specified; E87.6 Hypokalemia; D69.6 Thrombocytopenia, unspecified; R03.0 Elevated blood-pressure reading, without diagnosis of hypertension
CPT/HCPCS: 36415; 80048; 80053; 80307; 80320; 81001; 83690; 83735; 85025; 85027; 85610; 85730; 97116; 97161; 97530; 99285; J7030; A4216; G0480; J3490

== ENCOUNTER → 2024-09-04 | Outpatient (CLI) | payer MEDICARE, OTHER, SELFPAY ==
--- NOTE | 2024-09-04 12:44 | MRI_ITS ---
INDICATION: LT SIDED EXOTROPIA, BILATERAL UPPER EXTREM ATAXIA; ATTN ORBITS, DOUBLE VISION EXAMINATION: MRI - MR Brain WO/W Contrast TECHNIQUE: Multiplanar and multisequence MR images of the brain were obtained without and with gadolinium. IV Contrast Dosage and Agent: None. COMPARISON: 04/17/2008 FINDINGS: BRAIN PARENCHYMA: Chronic microvascular ischemic changes in the periventricular white matter. 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 No MRI evidence of hemorrhage. No evidence of acute infarct. No intracranial mass or mass effect. There is preservation of the mcconnell/white matter interface. Normal sella turcica, pituitary gland, infundibular stalk, optic chiasm and hypothalamus. INTERNAL AUDITORY CANALS: The internal auditory canals are well visualized and patent. No mass identified. CSF SPACES: Appropriate for age. No hydrocephalus. Basal cisterns are patent. VASCULAR SYSTEM: Normal flow voids in the major intracranial circulation. CALVARIUM, SKULL BASE, PARANASAL SINUSES AND MASTOID AIR CELLS: Clear. No expansile changes. ORBITS: Both globes, extraocular muscles, optic nerves and retrobulbar fat appear unremarkable. MRI/Brain W/WO Contrast IMPRESSION: Chronic microvascular ischemic changes in the periventricular white matter are more prominent when compared to the previous study. 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 Electronically Signed: Bear Irene MD at 8:27 EST ,
[2024-09-04 13:18] LABS: CREATININE FINGERSTICK < 1.0 mg/dL (0.70-1.30); EGFR FINGERSTICK > 60.0000 mL/min (>60)
== END | disposition home or self-care (01) ==
LOC: MRI 12:35
PROVIDERS: PCP Family Medicine
DX: H50.10 Unspecified exotropia (principal); R27.0 Ataxia, unspecified
CPT/HCPCS: 70553; A9575